=== PATIENT | female | born 1965 | race Caucasian/White ===

== ENCOUNTER 2023-07-13 13:17 | Emergency (ER) | payer OTHER ==
[~2023-07-13] VITALS: Ht 170.2 cm; Wt 67.7 kg
[2023-07-13 13:48] VITALS: BP 129/97; PULSE 91; RESP 14; TEMP 97.9; O2SAT 95
[2023-07-13] MEDS ORDERED: AZIT-164 PO (16:01)
[2023-07-13] MEDS ORDERED: AZIT250T81 PO (16:02)
== END 2023-07-13 16:09 | disposition home or self-care (01) ==
LOC: ER 13:17
DX: J20.9 Acute bronchitis, unspecified (principal); Z79.2 Long term (current) use of antibiotics; Z79.899 Other long term (current) drug therapy
CPT/HCPCS: 71045; 99283